=== PATIENT | female | born 1955 | race Caucasian/White ===

== ENCOUNTER → 2021-03-02 | Outpatient (CLI) | payer MEDICARE, OTHER ==
[2020-03-27 11:20] VITALS: BP 124/67
[~2021-03-02] MED LIST: ASPI-886 PO; ATOR40TA59 PO; METO-239 PO; PRAS10TA9 PO; REGADENOSON 0.4 MG/5 ML DISP.SYRIN. IV ONE
--- NOTE | 2021-03-03 11:52 | RAD ---
MR#: [id number] Date of Study: 03/02/2021 Ordering Physician: LIVIA MIMS, Referring Physician: JOHN BAUTISTA Tech: RT Radha Myers) (N) APPROVED REPORT Test Type: Pharmacological Stress Nurse/Tech: Arlene Snell RN Test Indications: CAD and shortness of breath Cardiac History: 2 stents (1 year ago) Medications: See Electronic Medical Record Medical History: See Electronic Medical Record Resting ECG: SR Resting Heart Rate: 75 bpm Resting Blood Pressure: 136/81mmHg Pretest Chest Pain: No chest pain Nurse/Tech Notes S1,S2 and lungs coarse throughout. Patient stated she quit smoking 3 almost 4 years ago but had smoke d since she was 16. Patient attempted a treadmill stress test but patient couldn't tolerate procedure , asked for us to stop the treadmill. Consent: The procedure was explained to the patient in lay terms. Informed consent was witnessed. Agapito eout was entered into [email or web address]. History and Stress Test performed by RT Radha Myers) (N) Pharm. Details Pharmacologic stress testing was performed using 0.4mg per 5ml of regadenoson given intravenously ove r 7-10 seconds. Stress Symptoms Dyspnea POST EXERCISE Reason for Termination: Infusion complete Target HR: No Max HR: 120 bpm Max Blood Pressure: 140/50mmHg Blood Pressure response to exercise: Normal blood pressure response during stress. Heart Rate response to exercise: WNL Chest Pain: No. Arrhythmia: No. ST Change: No. INTERPRETATION Stress EKG Conclusion: No evidence of stress induced EKG changes. Imaging Protocol IMAGE PROTOCOL: Rest Tc-99m/stress Tc-99m 1 day Rest: Stress: Viability: Radiopharm.Tc99m OkucopogbDi93g Sestamibi Dose10.6mCi 31.8mCi Duration 13min. 13min. Img Date 03/02/2021 03/02/2021 Inj-Img [id number]. 60min. Rest Admin Site:IV - Left AntecubitalAdministrator:RT Attila MyersR)(N) Stress Admin Site: IV - Left AntecubitalAdministrator: Alis Ly, RT (R)(N) STRESS DATA End Diast. Vol.47.0mlLVEDV index BSA28.0ml End Syst. Vol.12.0mlLVESV index BSA7.0ml Myocardial Mass93.0gEject. Skjptjez12.0% Stress Scores Regional WT0.00Summed WT2.00 Regional WM0.00Summed WM2.00 LV Perfusion There is a moderate to large size inferolateral partially reversible perfusion defect suggestive of p rior infarct with moderate sima-infarct ischemia. Normal LV systolic function with moderate inferola teral hypokinesis. EF 60%. LV Perf. Quant 17 Seg. SSS14.00 17 Seg. SRS7.00 17 Seg. SDS7.00 Stress Defect Extent (% LAD)8.10Rest Defect Extent (% LAD)0.00Rev. Defect Extent (% LAD)8.10 Stress Defect Extent (% LCX) 75.00Rest Defect Extent (% LCX)55.00Rev. Defect Extent (% LCX)30.00 Stress Defect Extent (% RCA)8.90Rest Defect Extent (% RCA)7.80Rev. Defect Extent (% RCA)0.00 Stress Defect Extent (% JACQUE)25.00Rest Defect Extent (% JACQUE)16.50Rev. Defect Extent (% JACQUE)9.10 Conclusion 1. No evidence of stress induced EKG changes. 2. Moderate sized inferolateral partially reversible perfusion defect consistent with prior infarct w ith mild to moderate sima-infarct ischemia. 3. Normal LV systolic function with moderate inferolateral hypokinesis, EF 60% 4. Moderate risk for future cardiovascular events. Signed by : Livia Mims, Electronically Approved : 03/03/2021 11:52:07
== END ==
LOC: NM 09:32
PROVIDERS: ATTEND Internal Medicine Cardiovascular Disease
DX: I25.10 Atherosclerotic heart disease of native coronary artery without angina pectoris (principal)
CPT/HCPCS: 78452; 93017; A9500; J2785

== ENCOUNTER → 2021-03-25 | Outpatient (CLI) | payer MEDICARE ==
[2020-03-27 11:20] VITALS: BP 124/67
[~2021-03-25] MED LIST changes: -REGADENOSON 0.4 MG/5 ML DISP.SYRIN. IV ONE
== END ==
LOC: PF 09:53
PROVIDERS: ATTEND Internal Medicine Cardiovascular Disease
DX: R06.00 Dyspnea, unspecified (principal)
CPT/HCPCS: 94060; 94640; 94726; 94729; 94664